=== PATIENT | female | born 1980 | race Two or more races ===

== ENCOUNTER 2025-01-17 07:30 | Day surgery (SDC) | payer BC, MEDICAID ==
[2025-01-15 15:22] LABS: Urine Bacteria None Seen /hpf (None Seen)
[2025-01-15 15:25] LABS: Basophils # (auto) 0 10 ^3/uL (0-0.2); Basophils % (auto) 0.3 % (0.0-2.0); Eosinophils # (auto) 0.3 10 ^3/uL (0-0.8); Eosinophils % (auto) 4.8 % (0.0-7.0); Hematocrit 47.3 % (36.0-46.0); Hemoglobin 15.7 g/dL (12.2-16.2); Lymphocytes # (auto) 2.4 10 ^3/uL (0.4-5.4); Lymphocytes % (auto) 32.6 % (10.0-50.0); Mean Corpuscular Hgb Conc. 33.1 g/dL (32.0-36.0); Mean Corpuscular Volume 90.5 fL (80.0-100.0); Monocytes # (auto) 0.7 10 ^3/uL (0-1.3); Monocytes % (auto) 9.1 % (0.0-12.0); Neutrophils # (auto) 3.9 10 ^3/uL (1.6-8.6); Neutrophils % (auto) 53.2 % (37.0-80.0); Nucleated Red Blood Cells % 0.3 %; Platelet Count (auto) 352 10^3/uL (140-450); Red Blood Cells 5.23 10^6/uL (4.0-5.20); Red Cell Distribution Width 12.9 % (11.8-14.3); White Blood Cell 7.3 10^3/uL (4.4-10.8)
[2025-01-15 15:33] LABS: Urine Blood Negative /uL (Negative); Urine Clarity Clear (Clear); Urine Color Colorless (Yellow); Urine Protein, UAD Negative (Negative); Urine Specific Gravity 1.009 (1.001-1.035); Urine Squamous Epithelial Cell FEW /hpf (<5); Urine Urobilinogen Normal (Negative); Urine WBC 3 /HPF (0-5); Urine pH 6.5 (5.0-9.0)
[2025-01-15 15:47] LABS: INR 0.92 (0.9-1.15); Prothrombin Time 9.8 sec (9.3-11.8)
[2025-01-15 16:58] LABS: Alanine Aminotransferase 33 U/L (7-40); Albumin 4.5 g/dL (3.2-4.8); Alkaline Phosphatase 68 U/L (46-116); Anion Gap 7 (5-15); Aspartate Aminotransferase 19 U/L (13-40); BUN/Creatinine Ratio 8.6 (10.0-20.0); Bilirubin, Total 0.4 mg/dL (0.2-1.0); Blood Urea Nitrogen 9 mg/dL (9-23); Calcium 9.8 mg/dL (8.7-10.4); Carbon Dioxide 29 mmol/L (20-31); Chloride 104 mmol/L (98-107); Glucose 96 mg/dL (74-106); Potassium 3.9 mmol/L (3.5-5.1); Sodium 140 mmol/L (136-145); Total Protein 7.2 g/dL (5.7-8.2)
[~2025-01-17] VITALS: Ht 144.8 cm; Wt 65.8 kg
[~2025-01-17 07:30] MED LIST: FAMO20TA10 GT; HYDR25SU21 RE; IBUP200C14 PO; PANT1INJ3 IV
[2025-01-17] MEDS ORDERED: PROPOFOL 10 MG/ML 20 ML IV ONE (08:36)
[2025-01-17] MEDS ORDERED: fentaNYL CITRATE 100 MCG/2 ML VL ONE (08:36)
[2025-01-17] MEDS ORDERED: HYDROCORTISONE SOD SUCC 100 MG/2ML INJ VIAL ONE (08:44)
--- NOTE | 2025-01-17 08:54 | DVHHP2 ---
GI H&P Pre-Op Assessment Date: 01/17/25 Chief complaint: abdominal pain HPI: per clinic note Past medical history: per clinic note Past surgical history: per clinic note Family history: per clinic note Physical exam: General: NAD, AAOX3 HEENT: PERRL, no scleral icterus, normal hearing, gums without lesions or ble eding, oropharynx clear without erythema or exudate. Neck: Supple without enlargement of the thyroid, or lymphadenopathy. Chest: Normal size and shape, no tenderness, lung kelly clear to auscultation and percussion, nonlabored breathing. Heart: RRR, no murmur Abdomen: non-distended, no tenderness to palpation, +BS, no hepatosplenomegaly Extremities: no edema Neurological: CN II-XII intact, sensation intact in all extremities, 5+ strength in all extremities Skin: No rashes, No jaundice Assessment: - abdominal pain Plan: - EGD - Risks (bleeding, infection, perforation, reaction to sedation medications and cardiopulmonary arrest) and benefit of the procedure were explained to patient. Patient agrees to undergo the procedure. SANDRO CLEMONS MD Jan 17, 2025 08:54
[2025-01-17 08:56] VITALS: PULSE 62; RESP 12; TEMP 98; O2SAT 100
--- NOTE | 2025-01-17 08:56 | DVHOP2 ---
Operative Report DATE OF OPERATION: 01/17/25 PROCEDURE: Upper Endoscopy. PREOPERATIVE INDICATION: The patient is a 44 -year-old female undergoing endoscopy for epigastric and left upper quadrant pain and nausea. POSTOPERATIVE DIAGNOSES: 1. Mild gastritis PROCEDURE PERFORMED BY: Efra Stanley SCOPE: Olympus videoendoscope. ASA CLASS: 3 PREOPERATIVE MEDICATIONS: MAC with Dr Mccauley PROCEDURE IN DETAIL: After obtaining an informed consent, the patient was placed on left lateral decubitus position. The patient was then sedated with the above medications. A bite block was placed between her teeth. The endoscope was then passed through the oropharynx, into the esophagus, and through the stomach and pylorus up to the second and third part of the duodenum. The duodenum was normal in appearance. There was mild gastritis. Gastric biopsy obtained using cold forceps. The GE junction was normal appearance at 33 cm. The esophagus was normal in appearance. The endoscope was then withdrawn. The patient tolerated the procedure well without difficulty. COMPLICATIONS : None SPECIMENS: Gastric biopsies DISPOSITION: D/C to home PLAN: 1. Await for biopsy result 2. Continue with Protonix. EFRA STANLEY MD Jan 17, 2025 08:56
--- NOTE | 2025-01-17 08:56 | DVHDS2 ---
Physician Discharge Progress N Final Diagnosis: Gastritis Operations or Procedures: Operations or Procedures EGD with cold forceps biopsies Condition on Discharge: Good Disposition: Home Discharge Instructions: Diet: Regular Activity: No Restrictions, As Tolerated Medications: Resume previous home medications Follow Up Care: Discharge Statement: "Patient was advised to return to the ER or call 911 if any headaches, dizziness, shortness of breath, chest pain, abdominal pain, bleeding, fevers, or worsening of medical condition. Patient was counseled about treatment plan, medications, possible side effects, patientverbalized understanding. All questions were answered to the best of my ability. This discharge took greater then 30 minutes in planning, reviewing documentati on, counseling the patient, and discussing with other team members." SANDRO CLEMONS MD Jan 17, 2025 08:56
[2025-01-17 09:20] VITALS: BP 112/65; PULSE 60; RESP 13; O2SAT 99
== END 2025-01-17 09:30 | disposition home or self-care (01) ==
LOC: GI 07:30
PROVIDERS: ATTEND Internal Medicine Gastroenterology
DX: R10.12 Left upper quadrant pain (principal); K29.50 Unspecified chronic gastritis without bleeding; R11.0 Nausea; Z79.899 Other long term (current) drug therapy; Z90.721 Acquired absence of ovaries, unilateral; Z98.890 Other specified postprocedural states; Z98.891 History of uterine scar from previous surgery
CPT/HCPCS: 36415; 43239; 80053; 81001; 81025; 85025; 85610; 85730; 88305; 88312; 88342; J1720; J2704; J3010; J7030